=== PATIENT | female | born 1990 | race Caucasian/White ===

== ENCOUNTER 2018-09-15 10:12 | Inpatient (IN) | payer OTHER, MEDICAID ==
[2018-09-15] MEDS ORDERED: MEPIVACAINE HCL 1% MPF 30 ML/VIAL SOL ONE (11:13)
[2018-09-15] MEDS ORDERED: OXYTOCIN 10000 MU/ML SOL ONE (11:13)
[2018-09-15] MEDS ORDERED: SODIUM CHLORIDE 0.9% FLUSH 10 ML SOL IV PRN (11:17)
[2018-09-15] MEDS ORDERED: FENTANYL 100MCG/2ML SOL IV PRN (11:17)
[2018-09-15] MEDS ORDERED: MEPIVACAINE HCL 1% MPF 30 ML/VIAL SOL INFIL PRN (11:17)
[2018-09-15] MEDS ORDERED: OXYTOCIN 10000 MU/ML SOL IM PRN (11:17)
[2018-09-15] MEDS ORDERED: METHYLERGONOVINE MALEATE 0.2 MG/ML SOL IM PRN (11:17)
[2018-09-15] MEDS ORDERED: CARBOPROST 250 MCG/ML SOL IM PRN (11:17)
[2018-09-15] MEDS ORDERED: LACTATED RINGERS 1,000 ML IV PRN (11:17)
[2018-09-15] MEDS: SODIUM CHLORIDE 0.9% FLUSH 10 ML SOL IV SCH ×2 (11:20→21:54)
[2018-09-15] MEDS ORDERED: BENZOCAINE/MENTHOL 1 SPR TOP PRN (12:48)
[2018-09-15] MEDS ORDERED: METHYLERGONOVINE MALEATE 0.2 MG TAB PO PRN (12:48)
[2018-09-15] MEDS ORDERED: BISACODYL 10 MG SUP PR PRN (12:48)
[2018-09-15] MEDS ORDERED: APAP/HYDROCODONE 1 EACH TABLET PO PRN (12:48)
[2018-09-15] MEDS ORDERED: TEMAZEPAM 15MG 15 MG CAP PO PRN (12:48)
[2018-09-15] MEDS ORDERED: FLEET ENEMA PR PRN (12:48)
[2018-09-15] MEDS ORDERED: IBUPROFEN 600 MG TAB PO PRN (12:48)
[2018-09-15] MEDS ORDERED: WITCH HAZEL 1 EA PAD TOP PRN (12:48)
[2018-09-15] MEDS: DOCUSATE SODIUM 100 MG SGL PO SCH (21:55)
[2018-09-16] MEDS: SODIUM CHLORIDE 0.9% FLUSH 10 ML SOL IV SCH ×2 (03:14→19:56)
[2018-09-16] MEDS ORDERED: MULTIVITAMIN2 1 EA TAB ONE (08:50)
[2018-09-16] MEDS: MULTIVITAMIN2 1 EA TAB PO SCH (08:53)
[2018-09-16] MEDS: FOLIC ACID 1 MG TAB PO SCH (08:53)
[2018-09-16] MEDS: DOCUSATE SODIUM 100 MG SGL PO SCH ×2 (08:53→21:04)
[2018-09-16 20:12] VITALS: RESP 16
[2018-09-17 06:04] VITALS: BP 120/76; PULSE 70; TEMP 97.9; O2SAT 97
[2018-09-17] MEDS: DOCUSATE SODIUM 100 MG SGL PO SCH (09:39)
[2018-09-17] MEDS: FOLIC ACID 1 MG TAB PO SCH (09:39)
[2018-09-17] MEDS: MULTIVITAMIN2 1 EA TAB PO SCH (09:39)
== END 2018-09-17 11:40 | disposition home or self-care (01) | DRG 807 ==
LOC: OB 10:12 → OBSVTOIN 10:12 → OB 19:03
PROVIDERS: ADMIT Family Medicine; ATTEND Family Medicine
PROC: 10E0XZZ Delivery of Products of Conception, External Approach (ICD-10-PCS; principal; 2018-09-15)
DX: O80 Encounter for full-term uncomplicated delivery (principal); Z37.0 Single live birth; Z3A.40 40 weeks gestation of pregnancy
CPT/HCPCS: 36415; 59025; 85018; J0670; J2210; J2590; A9270-GY